=== PATIENT | female | born 1970 | race Caucasian/White ===

== ENCOUNTER 2019-02-05 14:20 | Emergency (ER) | payer OTHER ==
[2019-02-05] MEDS: NICARDipine HCL 30 MG CAPSULE PO (17:30)
== END 2019-02-05 17:38 | disposition home or self-care (01) ==
LOC: E/R 14:20
DX: I10 Essential (primary) hypertension (principal); R40.2142 Coma scale, eyes open, spontaneous, at arrival to emergency department; R40.2362 Coma scale, best motor response, obeys commands, at arrival to emergency department; R40.2252 Coma scale, best verbal response, oriented, at arrival to emergency department
CPT/HCPCS: 99283; Z7502